=== PATIENT | female | born 2000 | race Two or more races ===

== ENCOUNTER 2024-10-13 21:12 | Emergency (ER) | payer MEDICAID, SELFPAY ==
[2024-10-13 21:16] VITALS: BMI 35.9
--- NOTE | 2024-10-13 21:22 | EKG_ITS ---
[facility] Test Date: 2024-10-13 Pat Name: LETY ANDERSON Department: Room: - Gender: Female Wood Room Hand: : [id number] Requested By: Loc Heredia Order Number: [id number] Reading MD: Loc Heredia Measurements Intervals [place] Rate: 72 P: 23 [place]: 167 QRS: -51 QRSD: 111 T: 24 QT: 361 QTc: 396 Interpretive Statements SINUS RHYTHM LOW QRS VOLTAGE IN PRECORDIAL LEADS [QRS DEFLECTION < 1.0 mV IN CHEST LEADS] LEFT ANTERIOR FASCICULAR BLOCK [QRS AXIS <= -45, QR IN I, RS IN II] POSSIBLE ANTERIOR MYOCARDIAL INFARCTION , OF INDETERMINATE AGE [30 ms Q WAVE IN V3/V4, OR R < 0.2 mV IN V4] No previous ECG available for comparison /[id number]/[email or web address]/[id number].pdf
[2024-10-13 21:45] VITALS: BP 134/87; PULSE 76; RESP 20; TEMP 36.7; O2SAT 98
--- NOTE | 2024-10-13 22:16 | XR_ITS ---
Examination: CT brain head without contrast. 2-D sagittal coronal reconstructions Date and time of exam:October 13, 2024 1055 hrs. Indications: Syncopal episode today CTDI: vol (mGy):46.7 DLP: (mGycm):950 Technique: Multiple CT axial sections of the brain have been obtained, 5 mm slice thickness. Contrast has not been administered. 2-D sagittal, coronal reconstructions have been obtained Low dose protocols were performed. One or more of the following dose reduction techniques were used; automated exposure control, adjustment of the mA and/or KV according to patient size, use of iterative reconstruction technique. Findings: No significant ventricular enlargement. Intra-axial or extra-axial hemorrhage density is not seen. No mass effect or midline shift Basal cisterns are not remarkable. Fourth ventricle is midline. Cranial vault intact. Impression: Negative for acute hemorrhage, mass effect or midline shift Advise clinical correlation and follow up accordingly
--- NOTE | 2024-10-13 22:16 | XR_ITS ---
Examination: PA chest single view Technique: PA chest single view Exam date and time: October 13 2024 1017 hrs. Indications: Chest pain today Findings: Normal heart size. Lungs are clear. Osseous structures are intact Impression: No active disease
--- NOTE | 2024-10-13 22:16 | PD.EDRME ---
Rapid Medical Screening Exam E Arrival date/time: 10/13/24 21:12 23F with no significant PMH presents to ED with near-syncopal episode today while driving and listening to music. Patient denies anxiety/panic attack history, emotional event/stress in life, URI symptoms, and drug/alcohol use. This has never happened before. Chief Complaint: Syncope / Near Syncope Vital signs: Vital Signs Temperature 98.1 F 10/13/24 21:45 Pulse Rate 76 10/13/24 21:45 Respiratory Rate 20 10/13/24 21:45 Blood Pressure 134/87 H 10/13/24 21:45 Pulse Oximetry (%) 98 10/13/24 21:45 Oxygen Delivery Method Room Air 10/13/24 21:45
[2024-10-13 23:14] LABS: Basophils # (Auto) 0.1 Thou/mm3 (0.0-0.2); Basophils % (Auto) 0 % (0-2.5); Eosinophils # (Auto) 0.1 Thou/mm3 (0.0-0.5); Eosinophils % (Auto) 1 % (0-10); Hematocrit 39.4 % (36.0-46.0); Hemoglobin 13.6 g/dL (12.0-16.0); Immature Granulocytes % (Auto) 1 % (0-0); Immature Granulocytes Auto 0.14 Thou/mm3 (0.00-0.00); Lymphocytes # (Auto) 4.2 Thou/mm3 (1.0-4.8); Lymphocytes % (Auto) 31 % (10-50); Mean Corpuscular HGB Conc 34.5 g/dl (31.0-37.0); Mean Corpuscular Volume 87 fL (80-100); Monocytes % (Auto) 7 % (0-12); Neutrophils % (Auto) 60 % (37-80); Nucleated Red Blood Cell % 0 /100 WBC (0); Platelet Count 285 Thou/mm3 (140-440); RDW Standard Deviation 40.6 fL (36.4-46.3); Red Blood Count 4.53 Miln/mm3 (4.00-5.20); White Blood Count 13.4 Thou/mm3 (3.6-11.0)
[2024-10-13 23:19] LABS: Collection Type, Urine Clean Catch; RBC,Urine 0 /hpf (0-3); WBC,Urine 0 /hpf (0-5)
[2024-10-13 23:36] LABS: Alanine Aminotransferase 110 U/L (10-49); Albumin, Serum 4.8 gm/dL (3.5-5.0); Albumin/Globulin Ratio 1.5 (1.2-2.2); Alkaline Phosphatase 107 U/L (46-116); Anion Gap 9 (7-16); Aspartate Amino Transferase 60 U/L (0-34); BUN/Creatinine Ratio 10 Ratio (12-20); Bilirubin,Total 0.3 mg/dL (0.3-1.2); Blood Urea Nitrogen 8 mg/dL (9-23); Carbon Dioxide 26.8 mMol/L (20.0-31.0); Chloride 103 mMol/L (98-107); Creatinine (Component) 0.8 mg/dL (0.6-1.3); Globulin 3.1 gm/dL (2.3-3.5); Glucose 148 mg/dL (74-106); Osmolality,Calculated 278 (275-295); Potassium 4.2 mMol/L (3.4-5.1); Sodium 139 mMol/L (136-145); Total Protein 7.9 gm/dL (5.7-8.2); Troponin I < 0.002 ng/mL (0.0-0.045); eGFR > 60 See Note
[2024-10-13 23:39] LABS: Bacteria,Urine Rare; Bilirubin,Urine Negative (Negative); Blood,Urine Negative (Negative); Clarity,Urine Clear (Clear/Hazy); Color,Urine Lt-Yellow (Lt Yel-Yel); Glucose, Urine Negative (Negative); Ketones,Urine Negative (Negative); Leukocyte Esterase,Urine Negative (Negative); Nitrite,Urine Negative (Negative); PH,Urine 6.5 (5.0-7.0); Protein,Urine Negative (Neg - Trace); Specific Gravity,Urine 1.015 (1.001-1.035); Squamous Epithelial Cell,Urine 4 /hpf (0-5); Urobilinogen,Urine Negative mg/dL (0.0-1.0)
[2024-10-13 23:57] LABS: Amphetamine/Methamp Scrn,U Negative (Negative); Barbiturate Screen,Urine Negative (Negative); Benzodiazepines Screen,Urine Negative (Negative); Benzoylecgonine Screen, Ur Negative (Negative); Fentanyl Screen,Urine Negative (Negative); Opiate Screen,Urine Negative (Negative); THC Screen,Urine Negative (Negative)
[2024-10-13 23:58] LABS: HCG Qualitative,Urine Negative
[2024-10-14 01:08] VITALS: BP 119/82; PULSE 71; RESP 19; TEMP 37.1; O2SAT 97
--- NOTE | 2024-10-14 01:55 | EDNOTE_ITS ---
ED Syncope RME/HPI General Chief Complaint: Syncope / Near Syncope Stated Complaint: near syncope/chest tightness Source: patient Arrival date/time: 10/13/24 21:12 Mode of arrival: ambulatory Limitations: no limitations RME / HPI RME / HPI narrative: 10/13/24 21:12 23F with no significant PMH presents to ED with near-syncopal episode today while driving and listening to music. Patient denies anxiety/panic attack history, emotional event/stress in life, URI symptoms, and drug/alcohol use. This has never happened before. Dr. Sheridan?s Main ED Evaluation: 23-year-old ambulatory female presents to the ED with complaints of sudden-onset palpitations, accompanied by near-syncope, nausea, chest tightness, and an impending sense of doom. 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 Upon further discussion, the patient became tearful and disclosed experiencing significant emotional distress following the loss of two immediate family members within the past year. She reports struggling with grief, as she serves as the primary emotional support for her family but lacks support for herself. Despite having had a good day prior to symptom onset, she expresses persistent emotional burden. No prior similar episodes reported. No other acute complaints at this time. Related Data Previous Rx's ?Medication ?Instructions ?Recorded ibuprofen 600 mg tablet 600 mg PO Q6HR PRN PAIN #25 tabs 01/05/17 lorazepam 0.5 mg tablet (Ativan) 0.5 mg PO QDAY PRN an xiety 3 days 10/14/24 #3 tabs Allergies Allergy/AdvReac Type Severity Reaction Status Date / Time aspirin Allergy Mild RASH Verified 10/13/24 21:19 Review of Systems Review of Systems Systems Reviewed: All systems reviewed, normal except as documented Past Medical History Past Medical History CARDIAC: Negative Congestive Heart Failure RESPIRATORY: Negative Chronic Obstructive Pulmonary Disease (COPD) GENITOURINARY: Negative Renal Disease ENDOCRINE: Negative Diabetes Mellitus Type 1 or Diabetes Mellitus Type 2 Social History SMOKING STATUS: Never smoker ED Exam Narrative Physical exam: GENERAL APPEARANCE: alert and oriented x 4, well-developed, well-nourished, no acute distress VITALS: All vitals were reviewed and the pulse ox is 97% on room air, which is normal according to my interpretation. HEENT: Normocephalic, atraumatic; pupils equal, round, reactive to light; EOMI; mucous membranes pink, moist; oropharynx clear NECK: Supple LUNGS: CTABL; no wheezes, no rales, no rhonchi HEART: Regular rate, regular rhythm; normal S1, S2; no murmurs ABDOMEN: non distended; normal BS; soft, no tenderness, no guarding, no rebound; no masses, no organomegaly, no hernia BACK: no CVA tenderness EXTREMITIES: atraumatic; no edema NEUROLOGIC: awake; alert and oriented x4; cranial nerves II-XII grossly intact; no focal sensory or motor deficits PSYCHIATRIC: appropriate mood and affect SKIN: warm, dry, normal color; no rashes General Limitations: Present no limitations Course Course Course Narrative: CXR is ordered for determining etiology of chest pain. Quality Measures none Orders Category Date Time Status EKG (ED ONLY) *Do not use* NOW Care 10/13/24 21:[address] head/brain wo con Stat Exams 10/13/24 22:16 Completed EKG (ED Only) Stat Exams 10/13/24 21:22 Draft XR chest 1V portable Stat Exams 10/13/24 22:16 Completed CBC Stat Lab 10/13/24 23:06 Completed Comprehensive Metabolic Panel Stat Lab 10/13/24 23:06 Completed Drug Screen,Urine Stat Lab 10/13/24 23:03 Completed HCG Qualitative,Urine Stat Lab 10/13/24 23:03 Completed Troponin I Stat Lab 10/13/24 23:06 Completed Urinalysis Stat Lab 10/13/24 23:03 Completed Vital Signs Vital signs: Vital Signs Temperature 98.1 F 10/13/24 21:45 Pulse Rate 76 10/13/24 21:45 Respiratory Rate 20 10/13/24 21:45 Blood Pressure 134/87 H 10/13/24 21:45 Pulse Oximetry (%) 98 10/13/24 21:45 Oxygen Delivery Method Room Air 10/13/24 21:45 Syncope MDM Narrative MDM Narrative:: Scribe Attestation: I, Jesus Masters, am scribing for and in the presence of Dr. Sheridan. Provider Notation: Although this document has been carefully reviewed, there may still be some phonetic and other typographical errors. These errors are purely grammatical due to imperfections in the software program and should not be construed in any way to compromise the substance of the patient's medical care during this visit. Patient data External records reviewed:: [facility] previous records Clinical information provided by:: patient Social determinants that could affect healthcare access:: none Patient has the following chronic illnesses:: see PMH How is presenting disease/condition affected by chronic disease/condition?: uneffected by Evaluation data The following diagnostics were reviewed and interpreted by me:: lab results, radiology exam(s) and EKG tracing(s) Lab and/or radiology exams considered but not ordered:: na Interpretation Summary: I personally reviewed the radiology data and agree with the radiologist's interpretation. Examination: PA chest single view Exam date and time: October 13 2024 1017 hrs. Indications: Chest pain today Findings: Normal heart size. Lungs are clear. Osseous structures are intact Impression: No active disease Dictated By: Dewayne Michael MD Examination: CT brain head without contrast. Date and time of exam:October 13, 2024 1055 hrs. Indications: Syncopal episode today Findings: No significant ventricular enlargement. Intra-axial or extra-axial hemorrhage density is not seen. No mass effect or midline shift Basal cisterns are not remarkable. Fourth ventricle is midline. Cranial vault intact. Impression: Negative for acute hemorrhage, mass effect or midline shift Advise clinical correlation and follow up accordingly Dictated By: Dewayne Michael MD Medications / Prescriptions Medications or Prescriptions considered but not ordered:: na Medication administrations:: as above, if any Consultations Consultation(s) initiated? (list below): No Diagnosis Syncope Differential Diagnosis: vasovagal syncope and other (Anxiety attack, Anxiety reaction, Near syncopal) Most likely diagnosis given after review of the tests above:: Anxiety Admission Indicated Admission indicated?: not indicated Admission Request Was there a request for admission?: No Disposition Plan Disposition Plan: Discharge Discharge Attestation Discharge Attestation: The patient and all family members were given an opportunity to ask questions and understood the discharge instructions. Discharge instructions specifically effects, indications for sooner follow up or return to the emergency department, and the expected course of current diagnosis. Patient condition: Stable Discharge Plan Plan Patient Disposition: HOME (Self Care) Disposition Comment: Stable for discharge home Patient condition on transfer: Stable Prescriptions/Referrals Prescriptions/Med Rec: New lorazepam [Ativan] 0.5 mg tablet 0.5 mg PO QDAY MDD 1 tab PRN (Reason: anxiety) 3 Days Qty: 3 0RF No Action ibuprofen 600 MG tablet 600 mg PO Q6HR PRN (Reason: PAIN) Qty: 25 0RF Referrals: [facility] [Outside] - In 1 week Problem List Clinical Impression: Anxiety reaction, Anxiety Patient/Caregiver Discharge Instructions Discharge Activity: activity as tolerated Education Materials: Journaling for Mental Health, Anxiety Disorders Tx Therapy, Understanding Anxiety Disorders, Treating Anxiety Disorders ..., ED Anxiety Reaction Additional Instructions: Please return to the emergency department if you have any worsening or any further medical problems. Otherwise you should follow-up with your primary care doctor within the next several days Print Language: Lithuanian Stand Alone Forms: Genevieve Award Info., Patient Portal Info Letter
[2024-10-14] MEDS: LORazepam 0.5 MG TABLET PO (02:39)
== END 2024-10-14 02:45 | disposition home or self-care (01) ==
PROVIDERS: Physician Assistant; Emergency Provider Emergency Medicine
DX: F41.1 Generalized anxiety disorder (principal); R55 Syncope and collapse; R07.89 Other chest pain
CPT/HCPCS: 36415; 70450; 71045; 80053; 80307; 81001; 81025; 84484; 85025; 93005; 99284; A9270